=== PATIENT | female | born 1965 | race Caucasian/White ===

== ENCOUNTER 2017-06-18 17:39 | Emergency (ER) | payer OTHER ==
[~2017-06-18] VITALS: Ht 167.6 cm; Wt 81.8 kg
[~2017-06-18 17:39] MED LIST: HYDR-4003 PO; PROC-4 PO
[2017-06-18 17:41] VITALS: BP 147/88; PULSE 88; RESP 16; O2SAT 98
--- NOTE | 2017-06-18 18:40 | ED.REPORT ---
HPI-Extremity Problem Lower Date of Service Jun 18, 2017 ED Provider: Taras Brumfield PA-C Susanna is a 51-year-old female with a recent history of breast cancer, osteoarthritis, osteoporosis and fibromyalgia presenting to the emergency department with concern for a right leg DVT. Patient reports seeing her orthopedic provider for steroid injection in her right knee last week. States that he inserted the needle into her right knee, she sounded extremely painful and had to abort the procedure. She complains of ongoing pain. She denies any other trauma. Denies fever, shaking chills. Nursing Notes Stated Complaint: PAIN AND POSSIBLE BLOOD CLOT IN RIGHT LEG Chief Complaint: Extremity Trauma Nursing Notes Reviewed: Yes Allergies: Coded Allergies: Sulfa (Sulfonamide Antibiotics) (Verified Allergy, Severe, hives,RASH, 08/26/16) Scheduled Prochlorperazine Maleate (Compazine) 10 Mg Tablet 10 MG PO q4hrs prn Scheduled PRN Hydrocodone-Acetaminophen 5-325 mg (Hydrocodone-Acetaminophen 5-325 mg) 1 Each Tablet 1 TABLET PO q6hrs PRN PRN For Pain General Time Seen by MD: 17:55 Chief Complaint Leg injury right Past Medical History Past Medical History Bipolar disorder PTSD invasive ductal carcinoma of the right breast (grade 3, ER positive, HER- 2 negative) 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 Right knee: Diffuse mild tenderness, most pronounced in the popliteal fossa. no obvious effusion, no redness, swelling, heat. Excellent range of motion. Right leg: Diffusely tender, most pronounced on the posterior right calf. Diameter roughly equal to the right. No pitting edema, redness, swelling, heat. Positive Homans sign. Right foot/ankle: Mild diffuse tenderness, normal to inspection, excellent range of motion. DP and PT pulses 2+. Head: Atraumatic, normocephalic. Eyes: No scleral icterus or injection. No discharge. Vision grossly intact. ENT: Voice clear, hearing grossly intact. Respiratory: No respiratory distress, no increased work of breathing. Speaks in complete sentences. Skin: Warm and dry. Neurological: Grossly nonfocal. Psychological: alert and oriented. Speech appropriate, linear and logical. Behavior appropriate. Initial Vital Signs Vital Signs (First) Date Time Temp Pulse Resp B/P Pulse Ox O2 Delivery O2 Flow Rate FiO2 06/18/17 17:41 36.6 88 16 147/88 98 Room Air Interpretation & Diagnostics US Soft Tissue/Musculoskeletal PROCEDURE: US VEINOUS LEG DUPLEX UNILATERAL, RIGHT INDICATIONS: popliteal tenderness, history cancer IMPRESSION: 1. No deep venous thrombosis. 2. Hypoechoic collection within the popliteal fossa possibly related to a ruptured Holland's cyst. Exam Performed by: Radiologist Re-Eval/Medical Decision Med Decision/Clinical Course 51-year-old female with a history of breast cancer, fibromyalgia, osteoarthritis presents emergency Department with right knee pain that began approximately one week ago when her orthopedic provider attempted to provide a steroid injection in her right knee. She is quite painful and aborted the procedure. She did not receive any medication. Complains of ongoing pain since then, today is concerned about a blood clot. Physical examination reveals tenderness in the popliteal fossa and proximal calf. There is no obvious effusion, redness, swelling, heat. Diffuse tenderness of the lower leg. Calf diameter roughly the left right. Pulses are intact. Because the patient's recent history of cancer as well as tenderness in the posterior calf, Dr. Shaver and I feel she is high enough risk to justify ultrasound investigation. This returned negative for DVT but positive for a possibly ruptured Holland's cyst. At this time I reassured against a more concerning condition such septic joint, DVT, gout, cellulitis. I believe she is stable to go home. Provided an Lewis wrap, advised rest and ice elevation and compression. Advised analgesia with naproxen supplemented by her home opiate medications. Advised orthopedic follow -up. Provided with return precautions. Patient verbalized understanding of and consent to the plan. Discharge & Departure Impression: Primary Impression: Holland cyst Discharge Condition All VS Reviewed: Yes Condition: Stable Patient Instructions: Bakers Cyst (ED) Additional Instructions: Evaluation for right knee pain in the emergency department was interviewed, physical examination and ultrasound which are reassuring that her pain is not caused by a blood clot. It appears to have a Holland's cyst behind your knee, likely caused by extra fluid due to arthritis. Placed the knee in an Lewis wrap for support and comfort. Please feel free to adjust this as you need to. Keep the knee elevated as much as possible and apply ice to 3 times a day. Pain can be managed with naproxen (Aleve) 500 mg every 12 hours. You can supplement this with your usual home pain medications, but do not take ibuprofen or other NSAIDs with naproxen. Follow-up with Dr. Marin for further assessment and treatment. Return to the emergency department for any new or worsening symptoms including increasing redness, swelling, pain, shortness of breath, chest pain or cough. Referrals: Ramon Marin MD EDSupervising Provider for APC: John Shaver DO copies to: Ru Whitmore MD; Ramon Marin MD, Seth PA-C Jun 18, 2017 18:40
--- NOTE | 2017-06-18 19:11 | DRSVH ---
PROCEDURE: US VEINOUS LEG DUPLEX UNILATERAL, RIGHT INDICATIONS: popliteal tenderness, history cancer TECHNIQUE: Real-time imaging, as well as color and pulse Doppler interrogation, were performed of the lower extr emity deep veins from the inguinal ligament to the popliteal fossa. COMPARISON: None. FINDINGS: The deep veins are normally compressible, and free of intraluminal thrombus. Color and pu lse Doppler demonstrate normal phasic intraluminal flow. There is normal augmentation response to di stal compression maneuver. Hypoechoic collection is present within the popliteal fossa measuring 53 x 13 x 23 mm. IMPRESSION: 1. No deep venous thrombosis. 2. Hypoechoic collection within the popliteal fossa possibly related to a ruptured Holland's cyst. Dictated by: Terrie Hoang M.D. on 06/18/2017 at 19:08 Approved by: Terrie Hoang M.D. on 06/18/2017 at 19:10
[2017-06-18 19:44] VITALS: PULSE 83; RESP 16; O2SAT 100
== END 2017-06-18 19:40 | disposition home or self-care (01) ==
LOC: SED 17:39
DX: M71.21 Synovial cyst of popliteal space [Baker], right knee (principal); I10 Essential (primary) hypertension; F31.9 Bipolar disorder, unspecified; F17.200 Nicotine dependence, unspecified, uncomplicated; M79.7 Fibromyalgia; Z88.2 Allergy status to sulfonamides